=== PATIENT | female | born 1970 | race Caucasian/White ===

== ENCOUNTER 2024-04-27 17:45 | Emergency (ER) | payer SELFPAY ==
[2024-04-27 18:12] VITALS: BP 134/77; PULSE 88; RESP 19; TEMP 37; O2SAT 96; BMI 37.0
--- NOTE | 2024-04-27 20:59 | ED.EXTPRO ---
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 Patient states pain is stinging and goes from her buttock down to her leg. Worse with movement. States that she goes up and down stairs several times per day and is having some pain with this movement. She was new to [place] after moving from [place] it was not have established care in the area. Due to her history of leukemia she decided to come to the ER for evaluation. Denies trauma, leg swelling, numbness, other complaints. Related Data Previous Rx's Medication Instructions Recorded meloxicam 15 mg tablet 15 mg PO DAILY #30 tabs 04/27/24 methylprednisolone 4 mg tablets in See Rx Instructions PO .COMPLEX 04/27/24 a dose pack (Medrol (Robel)) #21 ea Allergies Allergy/AdvReac Type Severity Reaction Status Date / Time celecoxib [From Celebrex] AdvReac Nausea Verified 04/27/24 18:17 Patient History Social History Smoking Status: Never smoker Smoking Status: Never smoker Exam Initial Vital Signs Initial Vital Signs: Vital Signs Temperature 98.6 F 04/27/24 18:12 Pulse Rate 88 04/27/24 18:12 Respiratory Rate 19 04/27/24 18:12 Blood Pressure 134/77 04/27/24 18:12 Pulse Oximetry 96 04/27/24 18:12 Oxygen Delivery Method Room Air 04/27/24 18:12 Const: Awake, alert, no acute distress, nontoxic appearing Cardiac: regular rate, regular rhythm RESP: unlabored, clear bilaterally, no wheezing MSK: Atraumatic, positive straight leg raise right-hand side Skin: Warm, Dry, intact, no rashes Neuro: AO x3, CN II-XII grossly intact, moves all extremities Course Orders Ordered: Discontinued Medications Dexamethasone (Dexamethasone 10 Mg/Ml Vial) 10 mg IM NOW ONE Stop: 04/27/24 21:01 Last Admin: 04/27/24 21:19 Dose: 10 mg Documented By: RALEIGH Ketorolac Tromethamine (Ketorolac 30 Mg/Ml Vial) 30 mg IM NOW ONE Stop: 04/27/24 21:06 Last Admin: 04/27/24 21:19 Dose: 30 mg Documented By: RALEIGH Vital Signs Vital signs: Vital Signs - 8 hr 04/27/24 21:37 Pulse Rate 65 Respiratory Rate 16 Blood Pressure 136/80 Pulse Oximetry 99 Oxygen Delivery Method Room Air MDM - Extremity (Nontraumatic) Differential Diagnosis Differential diagnosis: Likely lower extremity edema and other (sciatica, lumbar strain) MDM Narrative Medical decision making narrative: Well-appearing patient with right leg pain. History and exam are consistent with sciatica. Pain radiates from buttock to leg and exacerbated with straight leg raise. Patient has no lower extremity swelling, no trauma, no bowel or bladder incontinence. Patient was advised of presumptive diagnosis. We will trial steroids and NSAIDs. patient denies hx of kidney disease or contraindications to NSAID therapy. Patient was not have primary care doctor in the area as she states she was recently moved here from [facility]. She was given a PCP referral card of available [place] physicians accepting new patients. Patient requested a note off of work, which was provided. Discharge Plan Departure Patient Disposition: Home Clinical Impression: Sciatic leg pain Instructions: DI for Sciatica Activity Restrictions/Additional Instructions: Your exam today is most consistent with sciatic nerve pain. Steroids and anti-inflammatories can help your pain as well as stretching exercises at home. I recommend following up with the primary care doctor, especially if your symptoms persist. Prescriptions: New methylprednisolone [Medrol (Robel)] 4 mg tablets,dose pack See Rx Instructions .ROUTE .COMPLEX Qty: 21 0RF Rx Instructions: orally per package directions meloxicam 15 mg tablet 15 mg PO DAILY Qty: 30 0RF Referrals: Miscellaneous,Doctor, MD [Primary Care Provider] - Stand Alone Forms: Patient Portal/API/Survey, Work Release Note
[2024-04-27] MEDS: KETOROLAC 30 MG/ML VIAL IM (21:19)
[2024-04-27] MEDS: DEXAMETHASONE 10 MG/ML VIAL IM (21:19)
[2024-04-27 21:37] VITALS: BP 136/80; PULSE 65; RESP 16; O2SAT 99
== END 2024-04-27 21:26 | disposition home or self-care (01) ==
PROVIDERS: Emergency Provider Emergency Medicine
DX: M54.31 Sciatica, right side (principal)
CPT/HCPCS: 96372; 99283; 99284; J1100; J1885

== ENCOUNTER 2024-05-19 16:43 | Emergency (ER) | payer SELFPAY ==
[2024-05-19 16:48] VITALS: BP 126/74; PULSE 91; RESP 18; TEMP 36.6; O2SAT 96; BMI 38.5
--- NOTE | 2024-05-19 18:40 | ED_ITS ---
HPI - Nausea/Vomiting/Diarrhea General Chief complaint: Nausea/Vomiting/Diarrhea Stated complaint: pain, nausea, cancer Time Seen by Provider: 05/19/24 18:11 Source: patient Mode of arrival: Ambulatory History of Present Illness HPI Narrative: Patient was a 54-year-old female. She states she was a history of ?leukemia? she was not know what kind of leukemia. She stated that she was getting treatment in [place] and moved here to the local area within the past couple months. Had an appointment with a new oncologist today however was unable to make that appointment. She was not have a primary doctor. She was here because of nausea. He was also having lower back discomfort. Her lower back discomfort has been present for the past couple weeks. No trauma. No urinary symptoms. No change in bowel habits. No fevers. No chest pain or shortness of breath. She was told that she should not take anti-inflammatories in the past. Related Data Previous Rx's Medication Instructions Recorded meloxicam 15 mg tablet 15 mg PO DAILY #30 tabs 04/27/24 methylprednisolone 4 mg tablets in See Rx Instructions PO .COMPLEX 04/27/24 a dose pack (Medrol (Robel)) #21 ea ondansetron 4 mg disintegrating 4 mg PO Q6H PRN nausea and 05/19/24 tablet vomiting #14 tabs tramadol 25 mg tablet 25 mg PO Q4H PRN pain #10 tabs 05/19/24 Allergies Allergy/AdvReac Type Severity Reaction Status Date / Time celecoxib [From Celebrex] AdvReac Nausea Verified 05/19/24 16:52 Review of Systems Review of Systems ROS Unobtainable: All systems reviewed & are unremarkable except as noted in HPI and below Patient History Social History Smoking Status: Never smoker Smoking Status: Never smoker Exam Initial Vital Signs Initial Vital Signs: Vital Signs Temperature 97.8 F 05/19/24 16:48 Pulse Rate 91 H 05/19/24 16:48 Respiratory Rate 18 05/19/24 16:48 Blood Pressure 126/74 05/19/24 16:48 Pulse Oximetry 96 05/19/24 16:48 Oxygen Delivery Method Room Air 05/19/24 16:48 Const General: cooperative, comfortable and No ill appearing HENMT Head: normal to inspection and normocephalic Resp Effort & Inspection: normal respiratory effort Cardio Rate: regular rate GI Inspection: non-distended Back/Spine/Pelvis Back: No CVA tenderness Thoracic/Lumbar Spine: paraspinal tenderness Neuro General: patient alert, patient awake, patient oriented x3 and moves all extremities Speech: speech normal Gait: normal gait Course Orders Ordered: ED Orders 05/19/24 19:15 Comprehensive Metabolic Panel Stat Lipase Stat 05/19/24 19:44 Urine Culture Stat Urine Culture Stat Urine Microscopic Stat 05/19/24 19:55 Complete Blood Count AUTO DIFF Stat Discontinued Medications Hydrocodone Bitart/Acetaminophen (Hydrocodone/Acet 5/325 Tablet) 1 tab PO NOW ONE Stop: 05/19/24 20:35 Last Admin: 05/19/24 20:39 Dose: 1 tab Documented By: TIARA Vital Signs Vital signs: Vital Signs - 8 hr 05/19/24 16:48 05/19/24 19:24 05/19/24 19:24 Temperature 97.8 F Pulse Rate 91 H 69 Respiratory Rate 18 Blood Pressure 126/74 128/79 Pulse Oximetry 96 100 Oxygen Delivery Method Room Air 05/19/24 19:30 05/19/24 19:30 05/19/24 20:00 Temperature Pulse Rate 66 67 Respiratory Rate 18 Blood Pressure 125/80 Pulse Oximetry 97 99 Oxygen Delivery Method 05/19/24 20:30 05/19/24 20:30 05/19/24 20:45 Temperature 97.7 F Pulse Rate 68 69 Respiratory Rate 18 16 Blood Pressure 134/80 134/80 Pulse Oximetry 98 97 Oxygen Delivery Method Room Air MDM - Nausea/Vomiting/Diarrhea Lab Data Attestation: I reviewed the patient's lab results. 05/19/24 19:55 05/19/24 19:15 Labs: Lab Results 05/19/24 05/19/24 05/19/24 Range/Units 19:15 19:44 19:55 WBC 10.9 (4.5-11.0) X10^3/uL RBC 4.64 (4.0-5.2) X10^6/uL Hgb 13.5 (12.0-16.0) g/dL Hct 39.9 (36-46) % MCV 86.0 (80-100) fL MCH 29.1 (26-34) PG MCHC 33.8 (30-36) % RDW 14.9 H (11.6-14.8) % Plt Count 268 (150-400) X10^3/uL Neut % (Auto) 72.8 (50-75) % Lymph % (Auto) 17.6 L (25-40) % [place] % (Auto) 6.8 (3-14) % Eos % (Auto) 2.0 (2-4) % Baso % (Auto) 0.8 (0-2) % Neut # (Auto) 7900 H (1172-5498) /uL Lymph # (Auto) 1900 (6883-2693) /uL [place] # (Auto) 700 (0-900) /uL Eos # (Auto) 200 (0-450) /uL Baso # (Auto) 100 (0-100) /uL Sodium 139 (137-145) mmol/L Potassium 4.1 (3.4-5.1) mmol/L Chloride 107 (98-107) mmol/L Carbon Dioxide 24 (22-32) mmol/L BUN 27 H (7-17) mg/dL Creatinine 1.20 H (0.52-1.04) mg/dL Estimated GFR 53 L (>60) mL/min BUN/Creatinine Ratio 22.5 H (6-22) Glucose 131 H (70-100) mg/dL Calcium 9.9 (8.4-10.2) mg/dL Total Bilirubin 0.5 (0.2-1.3) mg/dL AST 39 H (14-36) IU/L ALT 42 H (<35) IU/L Alkaline Phosphatase 100 (38-126) U/L Total Protein 8.1 (6.3-8.2) g/dL Albumin 4.8 (3.5-5.0) g/dL Globulin 3.3 (1.7-4.1) g/dL Albumin/Globulin Ratio 1.5 (1.0-2.8) Lipase 79 (23-300) U/L Urine RBC 1-5/hpf (0-5/HPF) Urine WBC 5-10/hpf H (0-5/HPF) Ur Squamous Epith Cells 5-10 /hpf H (0-5/HPF) Amorphous Sediment 1+ Urine Bacteria Few (2-10) H (None) Ur Culture Indicated? Die Reamer Vol Urine Centrifuged 10ml (spun) Urine Dip Bedside Urine Glucose Negative Bedside Urine Bilirubin - Negative Bedside Urine Ketone - Negative Urine Specific [place] 1.020 Bedside Urine Occult Blood +/- Bedside Urine pH 5.5 Bedside Urine Protein - Negative Bedside Urine Urobilinogen - Negative Bedside Urine Nitrite - Negative Bedside Urine Leukocytes +/- 15 Esterase MDM Narrative Medical decision making narrative: Labs today are unremarkable. She does not have any UTI symptoms who we will wait until the culture results before starting on any antibiotics. I did discuss this with her and she expressed understanding that she may receive a call if we need to start antibiotics based on this. I have low suspicion for pyelonephritis. No trauma. Low suspicion for cauda equina. Has had the lower back discomfort for several weeks. We did discuss the importance of her following up with a local oncologist. She was also given a phone number to contact for establishing a primary doctor here locally. Will discharge patient home with symptom control for now. Patient was given return precautions. She expressed understanding and agreement. Discharge Plan Departure Patient Disposition: Home Clinical Impression: Nausea, Lower back pain Instructions: DI for Low Back Pain, DI for Nausea -- Adult Activity Restrictions/Additional Instructions: I do recommend that you reschedule your appointment with the oncologist that you had today. I also recommend that he was establish a primary doctor here in the area. You can contact [phone] during business hours to help you establish a primary doctor. Take all of your medications as directed. Return to the emergency department for new symptoms. Prescriptions: New ondansetron 4 mg tablet,disintegrating 4 mg PO Q6H PRN (Reason: nausea and vomiting) Qty: 14 0RF tramadol 25 mg tablet 25 mg PO Q4H PRN (Reason: pain) Qty: 10 0RF No Action methylprednisolone [Medrol (Robel)] 4 mg tablets,dose pack See Rx Instructions .ROUTE .COMPLEX Qty: 21 0RF Rx Instructions: orally per package directions meloxicam 15 mg tablet 15 mg PO DAILY Qty: 30 0RF Referrals: Adair Ware DO [Primary Care Provider] - Stand Alone Forms: Patient Portal/API/Survey, Work Release Note
[2024-05-19 19:24] VITALS: BP 128/79; PULSE 69; O2SAT 100
[2024-05-19 19:30] VITALS: BP 125/80; PULSE 66; RESP 18; O2SAT 97
[2024-05-19 19:47] LABS: Alanine Aminotransferase 42 IU/L (<35); Albumin 4.8 g/dL (3.5-5.0); Albumin Globulin Ratio 1.5 (1.0-2.8); Alkaline Phosphatase 100 U/L (38-126); Aspartate Aminotransferase 39 IU/L (14-36); BUN Creatinine Ratio 22.5 (6-22); Bilirubin Total 0.5 mg/dL (0.2-1.3); Blood Urea Nitrogen 27 mg/dL (7-17); Calcium 9.9 mg/dL (8.4-10.2); Carbon Dioxide 24 mmol/L (22-32); Chloride 107 mmol/L (98-107); Estimated Glomerular Filt Rate 53 mL/min (>60); Globulin 3.3 g/dL (1.7-4.1); Glucose 131 mg/dL (70-100); Lipase 79 U/L (23-300); Potassium 4.1 mmol/L (3.4-5.1); Sodium 139 mmol/L (137-145); Total Protein 8.1 g/dL (6.3-8.2)
[2024-05-19 19:49] LABS: HEMOLYSIS 74 (0-50)
[2024-05-19 20:00] VITALS: PULSE 67; O2SAT 99
[2024-05-19 20:01] LABS: Add Manual Diff / Slide Review NO; Basophils Absolute Auto 100 /uL (0-100); Basophils Percent Auto 0.8 % (0-2); Eosinophils Absolute Auto 200 /uL (0-450); Hematocrit 39.9 % (36-46); Hemoglobin 13.5 g/dL (12.0-16.0); Lymphocytes Absolute Auto 1900 /uL (1100-4500); Lymphocytes Percent Auto 17.6 % (25-40); Mean Corpuscular HGB Conc 33.8 % (30-36); Mean Corpuscular Hemoglobin 29.1 PG (26-34); Monocytes Absolute Auto 700 /uL (0-900); Monocytes Percent Auto 6.8 % (3-14); Neutrophils Absolute Auto 7900 /uL (1500-7000); Neutrophils Percent Auto 72.8 % (50-75); Platelet Count 268 X10^3/uL (150-400); Red Blood Cell Count 4.64 X10^6/uL (4.0-5.2); Red Cell Distribution Width 14.9 % (11.6-14.8); White Blood Cell Count 10.9 X10^3/uL (4.5-11.0)
[2024-05-19 20:16] LABS: Urine Volume 10mL (spun)
[2024-05-19 20:17] LABS: Amorphous Sediment Urine 1+; Bacteria Urine Few (2-10); RBC Urine 1-5/HPF (0-5/HPF); Squamous Epithelial Cell Urine 5-10 /HPF (0-5/HPF); WBC Urine 5-10/HPF (0-5/HPF)
[2024-05-19 20:30] VITALS: BP 134/80; PULSE 68; RESP 18; O2SAT 98
[2024-05-19] MEDS: HYDROCODONE/ACET 5/325 TABLET 1 TAB PO (20:39)
[2024-05-19 20:45] VITALS: BP 134/80; PULSE 69; RESP 16; TEMP 36.5; O2SAT 97
== END 2024-05-19 20:46 | disposition home or self-care (01) ==
PROVIDERS: Emergency Provider Emergency Medicine; PCP Student in an Organized Health Care Education/Training Program
DX: R11.0 Nausea (principal); M54.50 Low back pain, unspecified
CPT/HCPCS: 80053; 81003; 81015; 83690; 85025; 87086; 99283